=== PATIENT | female | born 2000 | race Caucasian/White ===

== ENCOUNTER → 2025-01-24 | Emergency (ER) | payer OTHER ==
[~2025-01-24] VITALS: Ht 162.6 cm; Wt 120.9 kg
[2025-01-24 16:38] VITALS: TEMP 97.9
[2025-01-24 18:27] LABS: RED BLOOD CELL COUNT(AUTO) 4.60 MIL/uL (4.00-5.20); RED CELL DISTRIBUTION WIDTH 13.2 % (11.5-14.5); WHITE BLOOD COUNT (AUTO) 9.5 K/uL (4.5-11.0)
[2025-01-24 18:28] LABS: CALCIUM, TOTAL 9.5 mg/dL (8.8-10.5); CREATININE 0.56 mg/dL (0.60-1.30); GLOMERULAR FILTR. RATE CALC > 60 mL/min (>60); GLUCOSE,RANDOM 155 mg/dL (70-110); SODIUM SERUM 138 mmol/L (136-145); UREA NITROGEN, BLOOD 11 mg/dL (7-18)
[2025-01-24 18:33] LABS: ASPARTATE AMINOTRANSFERASE 18.0 U/L (15-37); TOTAL PROTEIN, SERUM 7.9 g/dL (6.4-8.2)
[2025-01-24 18:50] LABS: PLATELET COUNT (AUTO) 333 K/uL (150-450)
[2025-01-24 19:30] VITALS: BP 120/77; PULSE 74; RESP 19; O2SAT 98
[2025-01-27 22:06] LABS: HEPATITIS B CORE IGM Negative (Negative); HEPATITIS C AB (EIA) Non Reactive (Non Reactive)
== END | disposition home or self-care (01) ==
LOC: EMS 16:35
DX: S60.942A Unspecified superficial injury of right middle finger, initial encounter (principal); E11.9 Type 2 diabetes mellitus without complications; Z77.21 Contact with and (suspected) exposure to potentially hazardous body fluids; W46.0XXA Contact with hypodermic needle, initial encounter; Y93.89 Activity, other specified; Y92.89 Other specified places as the place of occurrence of the external cause; Y99.0 Civilian activity done for income or pay
CPT/HCPCS: 80048; 80074; 80076; 85025; 99283